=== PATIENT | male | born 1965 | race Caucasian/White ===

== ENCOUNTER 2021-06-20 14:28 | Emergency (ER) | payer BC, MEDICAID ==
[~2021-06-20] VITALS: Ht 175.3 cm; Wt 144.2 kg
[2021-06-20] MEDS ORDERED: naproxen 500mg tablet PO ONE (22:35)
[2021-06-20] MEDS ORDERED: enoxaparin 100mg/ml syringe SUBCUT ONE (22:35)
[2021-06-20] MEDS ORDERED: METF-516 PO (23:20)
[2021-06-20] MEDS ORDERED: APIX5TAB3 PO (23:20)
[2021-06-20] MEDS ORDERED: METO-395 PO (23:20)
[2021-06-21 00:10] VITALS: BP 132/98
[2021-06-21] MEDS ORDERED: apixaban 5mg tablet PO SCH (08:00)
[2021-06-28] MEDS ORDERED: apixaban 5mg tablet PO SCH (08:00)
== END 2021-06-21 00:11 | disposition home or self-care (01) ==
LOC: ER 14:28
DX: I82.512 Chronic embolism and thrombosis of left femoral vein (principal); G89.29 Other chronic pain; I10 Essential (primary) hypertension; E11.9 Type 2 diabetes mellitus without complications; Z76.0 Encounter for issue of repeat prescription; Z91.048 Other nonmedicinal substance allergy status; Z91.018 Allergy to other foods; Z79.899 Other long term (current) drug therapy
CPT/HCPCS: 82948; 93971; 96372; 99284; J1650

== ENCOUNTER 2021-06-23 14:00 | Emergency (ER) | payer BC, MEDICAID ==
[~2021-06-23 14:00] MED LIST: APIX5TAB3 PO; METF-516 PO; METO-395 PO
== END 2021-06-23 16:00 | disposition left against medical advice (07) ==
LOC: ER 14:01
DX: Z53.21 Procedure and treatment not carried out due to patient leaving prior to being seen by health care provider (principal)

== ENCOUNTER 2023-06-15 16:41 | Emergency (ER) | payer BC, MEDICAID ==
[~2023-06-15] VITALS: Ht 175.3 cm; Wt 143.2 kg
[2023-06-15 16:45] VITALS: BP 138/80; PULSE 103; TEMP 98.6; O2SAT 94
[2023-06-15] MEDS ORDERED: AZIT250T27 PO (18:05)
[2023-06-15] MEDS ORDERED: AMOX-117 PO (18:05)
[2023-06-15 18:30] VITALS: RESP 18
== END 2023-06-15 18:57 | disposition home or self-care (01) ==
LOC: ER 16:42
DX: J18.8 Other pneumonia, unspecified organism (principal); Z20.822 Contact with and (suspected) exposure to COVID-19; I10 Essential (primary) hypertension; E11.9 Type 2 diabetes mellitus without complications; Z91.018 Allergy to other foods; Z88.8 Allergy status to other drugs, medicaments and biological substances; Z79.2 Long term (current) use of antibiotics; Z86.718 Personal history of other venous thrombosis and embolism; Z79.899 Other long term (current) drug therapy
CPT/HCPCS: 36415; 71045; 87502; 87503; 87811; 99284

== ENCOUNTER 2023-07-07 09:45 | Emergency (ER) | payer BC, MEDICAID ==
[~2023-07-07] VITALS: Ht 175.3 cm; Wt 143.0 kg
[2023-07-07 09:55] VITALS: TEMP 97.8
[2023-07-07 10:44] LABS: BASOPHILS % (AUTO) 0.6 % (0-1); EOSINOPHILS # (AUTO) 0.2 X10'3 (0-0.9); EOSINOPHILS % (AUTO) 2.9 % (0-6); HEMATOCRIT 43.6 % (42.0-52.0); HEMOGLOBIN 14.8 g/dl (14.0-17.9); LYMPHOCYTES # (AUTO) 2.2 X10'3 (1.1-4.8); LYMPHOCYTES % (AUTO) 32.1 % (21-51); MEAN CORPUSCULAR HEMOGLOBIN 32.8 PG (27.0-31.0); MEAN CORPUSCULAR VOLUME 96.2 FL (78-98); MEAN PLATELET VOLUME 8.6 FL (7.4-10.4); MONOCYTES # (AUTO) 0.5 X10'3 (0-0.9); MONOCYTES % (AUTO) 6.9 % (2-12); NEUTROPHILS # (AUTO) 3.9 X10'3 (1.8-7.7); NEUTROPHILS % (AUTO) 57.5 % (42-75); PLATELET COUNT 194 X10'3 (140-440); RED BLOOD COUNT 4.53 X10'6 (4.70-6.10); RED CELL DISTRIBUTION WIDTH 13.7 % (11.5-14.5); WHITE BLOOD COUNT 6.8 X10'3 (4.5-11.0)
[2023-07-07 11:06] LABS: ALBUMIN 3.4 G/DL (3.4-5.0); ANION GAP 9 (8-16); BLOOD UREA NITROGEN 16 MG/DL (7-18); BUN/CREATININE RATIO 11.8 (10.0-20.0); CALCIUM 8.4 MG/DL (8.5-10.1); CHLORIDE 102 MMOL/L (99-107); CREATININE 1.36 MG/DL (0.60-1.10); GLUCOSE 234 MG/DL (70-104); POTASSIUM 3.9 MMOL/L (3.5-5.1); PRO BRAIN NATRIURETIC PEPTIDE 46 PG/ML (0-125); SODIUM 138 MMOL/L (135-145); TOTAL CARBON DIOXIDE 26.9 MMOL/L (24-32); eCRCL 58 ML/MIN; eGFR 53 ML/MIN
[2023-07-07 11:26] VITALS: BP 126/76; PULSE 77; RESP 17; O2SAT 96
[2023-07-07] MEDS ORDERED: orphenadrine citrate 60mg/2ml inj. IM ONE (11:40)
[2023-07-07] MEDS ORDERED: ketorolac trometh inj. 60 MG/2 ML VIAL IM ONE (11:40)
[2023-07-07] MEDS ORDERED: CYCL-394 PO (11:42)
== END 2023-07-07 12:13 | disposition home or self-care (01) ==
LOC: ER 09:45
DX: G62.9 Polyneuropathy, unspecified (principal)
CPT/HCPCS: 36415; 70450; 71045; 80048; 82948; 83880; 84484; 85025; 93005; 96372; 99285; J1885; J2360

== ENCOUNTER 2023-07-17 11:35 | Emergency (ER) | payer BC, MEDICAID ==
[~2023-07-17] VITALS: Ht 175.3 cm; Wt 138.6 kg
[~2023-07-17 11:35] MED LIST changes: +CYCL-394 PO
[2023-07-17 11:39] VITALS: BP 156/85; PULSE 92; RESP 18; TEMP 97.8; O2SAT 98
[2023-07-17] MEDS ORDERED: ORPH100T4 PO (11:59)
[2023-07-17] MEDS ORDERED: LIDO700A32 TOP (11:59)
[2023-07-17] MEDS ORDERED: NAPR-56 PO (11:59)
== END 2023-07-17 12:11 | disposition home or self-care (01) ==
LOC: ER 11:36
DX: S16.1XXA Strain of muscle, fascia and tendon at neck level, initial encounter (principal); M62.838 Other muscle spasm; M54.12 Radiculopathy, cervical region; I10 Essential (primary) hypertension; E11.9 Type 2 diabetes mellitus without complications; Z91.018 Allergy to other foods; Z91.09 Other allergy status, other than to drugs and biological substances; Z79.899 Other long term (current) drug therapy; X58.XXXA Exposure to other specified factors, initial encounter; Y93.89 Activity, other specified; Y92.89 Other specified places as the place of occurrence of the external cause; Y99.8 Other external cause status
CPT/HCPCS: 99283